=== PATIENT | female | born 1950 | race Caucasian/White ===

== ENCOUNTER 2017-02-04 11:21 | Outpatient (CLI) | payer OTHER ==
--- NOTE | 2017-02-05 11:44 | DIAGNOSTIC IMAGING REPORT ---
PROCEDURE: MG UNILATERAL DIAG-RT W/CAD INDICATION: 6-month follow-up post stereotactic right breast biopsy (microcalcifications). TECHNIQUE: CC, MLO and true-lateral digital views of right breast. In addition, magnification lateral, CC, and MLO views were obtained of the medial right breast (region of clinical concern). COMPARISON: Comparison is made to outside stereotactic biopsy studies (07/11/2016), and diagnostic studies from [facility] (right mammogram 07/03/2016, screening mammogram 07/01/2016). FINDINGS: MAMMOGRAM: Computer-aided detection applied. Mildly to moderately dense parenchymal pattern with scattered dystrophic calcifications. Interim biopsy tract in the posterior central right breast with placement of surgical clip. There is a small group of recurrent or residual clustered microcalcifications in the medial right breast (0300 position, posterior third). IMPRESSION: 1. There is a small group of residual or recurrent microcalcifications in the medial right breast which are indeterminate, although still considered suspicious. Preoperative mammographic needle localization followed by surgical excision is recommended in this instance. 2. Findings called to LAZARO Fitzgerald. RESULT CODE: 4- Suspicious abnormality - biopsy should be considered. A. A negative report should not delay biopsy if a dominant or clinically suspicious mass is present. 10-15% of cancers are not identified by x-ray. B. A negative report may reinforce clinical impression. C. Adenosis and dense breasts may obscure an underlying neoplasm. D. False positive reports average 6-10%. E.. A yearly screening mammogram is recommended. A reminder letter will be scheduled.
== END 2017-02-04 23:00 ==
LOC: MAM SRH 11:21
DX: R92.0 Mammographic microcalcification found on diagnostic imaging of breast (principal)